=== PATIENT | male | born 1955 | race Caucasian/White ===

== ENCOUNTER → 2018-03-02 | Outpatient (CLI) | payer BC ==
[~2018-03-02] MED LIST: AMIT50TA3 PO; AMLO-110 PO; ASPI81TA28 PO; ATOR-24 PO; HYZ/10015 PO; INSU1.2I SC; LEVO50TA PO; METF-384 PO; OMEG10007 PO; OXYC-106 PO; PSYL55.43 PO
[2018-03-02 12:52] LABS: BLOOD UREA NITROGEN 14 mg/dl (7-18); CALCIUM 9.7 mg/dl (8.5-10.1); CARBON DIOXIDE 28 mmol/L (21-32); CREATININE 0.95 mg/dl (0.60-1.40); GLUCOSE 147 mg/dl (70-99); POTASSIUM 4.1 mmol/L (3.5-5.1); SODIUM 136 mmol/L (136-145)
== END | disposition home or self-care (01) ==
LOC: C.LAB1850 10:07
DX: R73.9 Hyperglycemia, unspecified (principal); E78.5 Hyperlipidemia, unspecified

== ENCOUNTER → 2018-07-06 | Outpatient (CLI) | payer BC ==
[~2018-07-06] MED LIST changes: -AMLO-110 PO; +AMLO5TAB3 PO; -OXYC-106 PO; +OXYC-594 PO
[2018-07-06 13:20] LABS: HEMOGLOBIN A1C 7.9 % (4.5-5.6)
[2018-07-06 13:27] LABS: ALT/SGPT 67 U/L (12-78); AST/SGOT 46 U/L (15-37); BLOOD UREA NITROGEN 19 mg/dl (7-18); CALCIUM 9.3 mg/dl (8.5-10.1); CARBON DIOXIDE 27 mmol/L (21-32); CREATININE 0.93 mg/dl (0.60-1.40); GLUCOSE 141 mg/dl (70-99); SODIUM 134 mmol/L (136-145)
== END | disposition home or self-care (01) ==
LOC: C.LAB1850 11:48
DX: I10 Essential (primary) hypertension (principal); E78.5 Hyperlipidemia, unspecified; E11.9 Type 2 diabetes mellitus without complications

== ENCOUNTER 2020-05-19 15:40 | Inpatient (IN) ==
[2020-05-19] MEDS ORDERED: LACTATED RINGER'S 1,000 ML IV ONE (16:02)
[2020-05-19] MEDS ORDERED: SODIUM CHLORIDE 0.9% 1000ML 1,000 ML IV ONE (16:02)
--- NOTE | 2020-05-19 16:37 | Emergency Department Note ---
Impression & Plan Fever, SIRS (systemic inflammatory response syndrome), CHRIS (acute kidney injury), Elevated lactic acid level, Acute confusion ED Provider Note Provider: Fortino Castañeda MD DATE OF SERVICE: 05/19/2020 CHIEF COMPLAINT: Fever, confusion, weakness HISTORY OF PRESENT ILLNESS: Patient is a 64-year-old gentleman history of chronic bronchitis, hypertension, diabetes presenting today via private vehicle with his reporting fever with some confusion and weakness over the past 3 days. Also reports fairly consistent headache. States this prior drove up to [place] camp about 100 miles away. The next morning this past Wednesday patient began to experience headaches and fevers and weakness. Yesterday Wednesday, the patient states he had a fever and just laid in bed and was very tired. They drove back today to be further evaluated. Patient's has some URI and sore throat symptoms herself. Patient states he has a headache but no neck pain. Patient denies visual change. States that he has some mild diffuse abdominal pain at some point but denies real pain at this time. Denies urinary symptoms. States he is been constipated for several days. States he has a chronic cough due to his chronic bronchitis but denies that this is acutely worse. No other travel or sick contacts reported besides his in the recent travel [place]. No trauma is reported. Patient's headache has been fairly constant. States he is taken some Tylenol but unsure when. Patient has some difficulty with remembering exact details over last several days and his has reported that he seems a bit more confused and off. Patient states he does have a small riley on his right upper arm but denies any recent tick bites or that he removed anything from this or how this occurred. REVIEW OF SYSTEMS: A total of 10 review of systems was obtained and negative except as stated above in the HPI. PAST MEDICAL HISTORY: As noted above MEDICATIONS: Reviewed his medication list which includes insulin, amitriptyline, amlodipine SOCIAL HISTORY: Lives at home with in the [place] area. Denies smoking at this time. PHYSICAL EXAM: GENERAL: alert and oriented to person in no acute distress on stretcher Head: normocephalic and atraumatic EYES: No injection, discharge or icterus. PERRL NECK: Trachea midline. Supple. No meningismus. Moving his head around looking around the room without difficulty. ENT: Mucous membranes pink and moist. Pharynx without erythema or exudate. LUNGS: Airway patent. No retractions. Breath sounds clear HEART: Tachycardic rate and rhythm. No chest wall tenderness ABDOMEN: Soft and non-tender, without guarding or rebound. SKIN: Acyanotic, warm, dry, without rashes EXTREMITIES: Without swelling, tenderness or deformity except for 1 small 3 cm area of punctate erythema and possible bite on the right upper arm. There is no surrounding bullae erythema, fluctuance, crepitus, or evidence of retained foreign body. NEUROLOGICAL: No focal deficits. No aphasia. No facial droop or slurred speech. Patient does have some difficulty recollecting fairly recent events over the last several days I would expect remembrances whether he took Tylenol today or not. Seems to minimize the symptoms on exam. Patient does have some slight twitching and tremor of his hands and legs. (Report that there is always some mild symptoms but this seems to be slightly exacerbated over the last several days) EKG: Sinus tachycardia 110 bpm, no PVC. QTC 476. There is no significant acute ST segment elevation noted. This is similar to prior EKG available from March [id number]. CONTINUOUS CARDIAC MONITORING: was ordered and showed a heart rate of 108 bpm in sinus tachycardia Patient's hypertension was referred to the hospitalist HOSPITAL COURSE: 1620 Patient was first seen and H&P performed. 180 discussed with patient's via phone. She agrees that he seemed a bit off and agrees with plan for further observation here in the hospital. 181 Patient reassessed and updated. Patient was agreeable for further observation in the hospital 183 discussed with the [facility] hospitalist team for admission. Patient's laboratory studies and imaging reviewed. Differential includes Viral syndrome, otitis, pharyngitis, pneumonia, influenza, meningitis, urinary tract infection, sepsis, bacteremia, as well as other pathologies. IMPRESSION/MEDICAL DECISION MAKING: Patient was made a code sepsis due to tachycardia fever, and some mild hypoxia upon arrival. Patient has chronic bronchitis likely why his oxygen levels are in the lower range. Given his recent travel and concern for infectious pathology rapid COVID test was completed and negative. CT of the chest was completed to exclude PE and this was negative. There is no evidence of pneumonia there. Labs were obtained without evidence of significant leukocytosis. Sodium is mildly depressed at 130 (mild hyponatremia), slight CHRIS 1.45 compared to recent value around 1 several weeks ago. Lactate mildly elevated 2.2. Glucose 232. Troponin not elevated. AST slightly elevated. Procalcitonin 0.65 is somewhat concerning. Urinalysis looks negative for signs of infection. Lyme screen was negative. CT of the head was completed without evidence of acute intercranial hemorrhage or abnormality. I doubt subarachnoid hemorrhage. CT of the chest and abdomen pelvis without acute pathology to explain his symptoms. Patient received 2 L of IV fluid resuscitation. I doubt this represents meningitis given how well the patient is moving his head and lack of neck tenderness at this time. There is no leukocytosis. Anaplasmosis testing was sent some concern for this. Do not see evidence of a cellulitis. He is mildly confused, febrile, tachycardic and with this feel that further observation and evaluation in the hospital is indicated this time. Discussed with him and his who are in agreement. Given empiric treatment with doxycycline and a dose of Levaquin at this time to cover broadly including tickborne disease while further differentiation is pursued. Discussed with the hospitalist team. DIAGNOSIS: Fever, CHRIS, SIRS criteria, tachycardia, confusion, elevated lactate DISPOSITION: Hospitalist will evaluate Patient was agreeable with this plan. Past Med/Surg History Social History Feels Safe at Home: Yes Smoking Status: Never smoker Allergies Allergies Allergy/AdvReac Type Severity Reaction Status Date / Time Penicillins Allergy Severe AMOXICILLIN-HIVES; Verified 05/19/20 16:42 throat swelling Home Meds Home Medications Medication Instructions Recorded Confirmed Unknown Insulin 30 unit SC BID 05/19/20 05/19/20 amitriptyline 50 mg PO BID 05/19/20 05/19/20 amlodipine [Norvasc] 10 mg PO DAILY 05/19/20 05/19/20 budesonide-formoterol [Symbicort] 2 puff INHALATION BID 05/19/20 05/19/20 dapagliflozin-metformin [Xigduo XR] 1 tab PO DAILY 05/19/20 05/19/20 glyburide 15 mg PO DAILY 05/19/20 05/19/20 hydrocodone-acetaminophen [[place]] 1 tab PO Q4 PRN 05/19/20 05/19/20 levothyroxine [Synthroid] 75 mcg PO DAILY 05/19/20 05/19/20 losartan [Cozaar] 100 mg PO DAILY 05/19/20 05/19/20 rosuvastatin 40 mg PO DAILY 05/19/20 05/19/20 spironolactone [Aldactone] 25 mg PO BID 05/19/20 05/19/20 Results & Data (ED) Vital Signs Vital Signs - 24 hr 05/19/20 15:49 05/19/20 16:17 05/19/20 16:35 Temperature 38.8 C H Temperature Source Oral Pulse Rate 116 H 106 H Pulse Rate from SpO2 Sensor 106 H Respiratory Rate 24 28 H Respiratory Effort / Characteristics Non-Labored Respiratory Depth Normal Blood Pressure 136/64 140/62 Blood Pressure Mean 88 77 Pulse Oximetry 89 L 93 93 Oxygen Delivery Method Room Air Room Air Sepsis Recent Fever Within 48 Hours No Sepsis Action Taken by Nursing No Action Required 05/19/20 16:45 05/19/20 17:45 05/19/20 17:51 Temperature 38.7 C H Temperature Source Oral Pulse Rate 106 H 107 H Pulse Rate from SpO2 Sensor 104 H Respiratory Rate 27 H 23 Respiratory Effort / Characteristics Respiratory Depth Blood Pressure 154/62 H 131/52 L Blood Pressure Mean 93 64 Pulse Oximetry 94 93 Oxygen Delivery Method Room Air Sepsis Recent Fever Within 48 Hours Sepsis Action Taken by Nursing Laboratory Data Result diagrams: 05/19/20 16:25 05/19/20 16:25 Lab Results 05/19/20 05/19/20 05/19/20 Range/Units 16:25 16:25 16:25 WBC 9.01 (4.8-10.8) K/uL RBC 5.18 (4.7-6.1) M/uL Hgb 15.4 (14.0-18.0) g/dL Hct 46.8 (42-52) % MCV 90.3 (80-100) fL MCH 29.7 (25-34) pg MCHC 32.9 (32-36) g/dL RDW Std Deviation 46.7 H (36.4-46.3) fL RDW Coeff of Papo 14.0 (11.5-14.5) % Plt Count 205 (130-400) K/uL MPV 10.2 (7.4-10.4) fL Immature Gran % (Auto) 0.2 % Neut % (Auto) 87.6 % Lymph % (Auto) 7.3 % O'Brien % (Auto) 4.8 % Eos % (Auto) 0.0 % Baso % (Auto) 0.1 % Immature Gran # (Auto) 0.02 (0.00-0.02) K/uL Neut # (Auto) 7.89 H (1.4-6.5) K/uL Lymph # (Auto) 0.66 L (1.2-3.4) K/uL O'Brien # (Auto) 0.43 (0.11-0.59) K/uL Eos # (Auto) 0.00 (0-0.5) K/uL Baso # (Auto) 0.01 (0-0.2) K/uL PT 11.4 (9.0-12.0) Seconds INR 1.1 (0.9-1.1) APTT 27.6 (21.0-31.0) Seconds PTT Ratio 1.0 Sodium 130 L (136-145) mmol/L Potassium 4.1 (3.5-5.1) mmol/L Chloride 98 (98-107) mmol/L Carbon Dioxide 24 (21-32) mmol/L Anion Gap 8.0 (3-11) BUN 24 H (7-18) mg/dl Creatinine 1.45 H (0.6-1.4) mg/dl Est Cr Clr Drug Dosing 57.3 ml/min Est GFR ( Amer) 58.6 Est GFR (Non-Af Amer) 50.5 BUN/Creatinine Ratio 16.4 (10-20) Glucose 232 H (70-99) mg/dl Lactate (0.4-2.0) mmol/L Calcium 8.7 (8.5-10.1) mg/dl Magnesium 2.1 (1.8-2.4) mg/dl Total Bilirubin 0.6 (0.2-1) mg/dl AST 53 H (15-37) U/L ALT 69 (12-78) U/L Alkaline Phosphatase 65 (45-117) U/L Troponin I < 0.015 (0-0.045) ng/ml Total Protein 7.8 (6.4-8.2) gm/dl Albumin 3.7 (3.4-5.0) gm/dl Globulin 4.1 H (2.5-4.0) gm/dl Albumin/Globulin Ratio 0.9 (0.9-2) Procalcitonin (0-0.5) ng/ml Urine Color Urine Appearance (Clear) Urine pH (4.5-7.5) Ur Specific [place] (1.000-1.030) Urine Protein (Negative) Urine Glucose (UA) (Negative) Urine Ketones (Negative) Urine Blood (Negative) Urine Nitrite (Negative) Urine Bilirubin (Negative) Urine Urobilinogen (Negative) Ur Leukocyte Esterase (Negative) Urine WBC (Auto) (0-5) /hpf Urine RBC (Auto) (0-4) /hpf U Hyaline Cast (Auto) (0-5) /lpf U Epithel Cells (Auto) (0-5) /lpf Urine Bacteria (Auto) (Negative) Lyme Disease IgG Ab (Negative) Lyme Disease IgM Ab (Negative) COVID-19 PCR (Negative) SARS-CoV-2 RNA (RT-PCR) 05/19/20 05/19/20 05/19/20 Range/Units 16:25 16:25 16:25 WBC (4.8-10.8) K/uL RBC (4.7-6.1) M/uL Hgb (14.0-18.0) g/dL Hct (42-52) % MCV (80-100) fL MCH (25-34) pg MCHC (32-36) g/dL RDW Std Deviation (36.4-46.3) fL RDW Coeff of Papo (11.5-14.5) % Plt Count (130-400) K/uL MPV (7.4-10.4) fL Immature Gran % (Auto) % Neut % (Auto) % Lymph % (Auto) % O'Brien % (Auto) % Eos % (Auto) % Baso % (Auto) % Immature Gran # (Auto) (0.00-0.02) K/uL Neut # (Auto) (1.4-6.5) K/uL Lymph # (Auto) (1.2-3.4) K/uL O'Brien # (Auto) (0.11-0.59) K/uL Eos # (Auto) (0-0.5) K/uL Baso # (Auto) (0-0.2) K/uL PT (9.0-12.0) Seconds INR (0.9-1.1) APTT (21.0-31.0) Seconds PTT Ratio Sodium (136-145) mmol/L Potassium (3.5-5.1) mmol/L Chloride (98-107) mmol/L Carbon Dioxide (21-32) mmol/L Anion Gap (3-11) BUN (7-18) mg/dl Creatinine (0.6-1.4) mg/dl Est Cr Clr Drug Dosing ml/min Est GFR ( Amer) Est GFR (Non-Af Amer) BUN/Creatinine Ratio (10-20) Glucose (70-99) mg/dl Lactate 2.2 H* (0.4-2.0) mmol/L Calcium (8.5-10.1) mg/dl Magnesium (1.8-2.4) mg/dl Total Bilirubin (0.2-1) mg/dl AST (15-37) U/L ALT (12-78) U/L Alkaline Phosphatase (45-117) U/L Troponin I (0-0.045) ng/ml Total Protein (6.4-8.2) gm/dl Albumin (3.4-5.0) gm/dl Globulin (2.5-4.0) gm/dl Albumin/Globulin Ratio (0.9-2) Procalcitonin 0.65 H (0-0.5) ng/ml Urine Color Urine Appearance (Clear) Urine pH (4.5-7.5) Ur Specific [place] (1.000-1.030) Urine Protein (Negative) Urine Glucose (UA) (Negative) Urine Ketones (Negative) Urine Blood (Negative) Urine Nitrite (Negative) Urine Bilirubin (Negative) Urine Urobilinogen (Negative) Ur Leukocyte Esterase (Negative) Urine WBC (Auto) (0-5) /hpf Urine RBC (Auto) (0-4) /hpf U Hyaline Cast (Auto) (0-5) /lpf U Epithel Cells (Auto) (0-5) /lpf Urine Bacteria (Auto) (Negative) Lyme Disease IgG Ab Negative (Negative) Lyme Disease IgM Ab Negative (Negative) COVID-19 PCR (Negative) SARS-CoV-2 RNA (RT-PCR) 05/19/20 05/19/20 05/19/20 Range/Units 16:29 16:29 17:15 WBC (4.8-10.8) K/uL RBC (4.7-6.1) M/uL Hgb (14.0-18.0) g/dL Hct (42-52) % MCV (80-100) fL MCH (25-34) pg MCHC (32-36) g/dL RDW Std Deviation (36.4-46.3) fL RDW Coeff of Papo (11.5-14.5) % Plt Count (130-400) K/uL MPV (7.4-10.4) fL Immature Gran % (Auto) % Neut % (Auto) % Lymph % (Auto) % O'Brien % (Auto) % Eos % (Auto) % Baso % (Auto) % Immature Gran # (Auto) (0.00-0.02) K/uL Neut # (Auto) (1.4-6.5) K/uL Lymph # (Auto) (1.2-3.4) K/uL O'Brien # (Auto) (0.11-0.59) K/uL Eos # (Auto) (0-0.5) K/uL Baso # (Auto) (0-0.2) K/uL PT (9.0-12.0) Seconds INR (0.9-1.1) APTT (21.0-31.0) Seconds PTT Ratio Sodium (136-145) mmol/L Potassium (3.5-5.1) mmol/L Chloride (98-107) mmol/L Carbon Dioxide (21-32) mmol/L Anion Gap (3-11) BUN (7-18) mg/dl Creatinine (0.6-1.4) mg/dl Est Cr Clr Drug Dosing ml/min Est GFR ( Amer) Est GFR (Non-Af Amer) BUN/Creatinine Ratio (10-20) Glucose (70-99) mg/dl Lactate (0.4-2.0) mmol/L Calcium (8.5-10.1) mg/dl Magnesium (1.8-2.4) mg/dl Total Bilirubin (0.2-1) mg/dl AST (15-37) U/L ALT (12-78) U/L Alkaline Phosphatase (45-117) U/L Troponin I (0-0.045) ng/ml Total Protein (6.4-8.2) gm/dl Albumin (3.4-5.0) gm/dl Globulin (2.5-4.0) gm/dl Albumin/Globulin Ratio (0.9-2) Procalcitonin (0-0.5) ng/ml Urine Color Yellow Urine Appearance Clear (Clear) Urine pH 6.0 (4.5-7.5) Ur Specific [place] 1.027 (1.000-1.030) Urine Protein 2+ H (Negative) Urine Glucose (UA) 3+ H (Negative) Urine Ketones Negative (Negative) Urine Blood Negative (Negative) Urine Nitrite Negative (Negative) Urine Bilirubin Negative (Negative) Urine Urobilinogen Negative (Negative) Ur Leukocyte Esterase Negative (Negative) Urine WBC (Auto) 0 (0-5) /hpf Urine RBC (Auto) 0-4 (0-4) /hpf U Hyaline Cast (Auto) 0 (0-5) /lpf U Epithel Cells (Auto) 5-10 H (0-5) /lpf Urine Bacteria (Auto) Negative (Negative) Lyme Disease IgG Ab (Negative) Lyme Disease IgM Ab (Negative) COVID-19 PCR NEGATIVE (Negative) SARS-CoV-2 RNA (RT-PCR) Cancelled Administered Medications Levofloxacin/Dextrose (Levaquin/D5w) 750 mg in 150 mls @ 100 mls/hr IV NOW STA Stop: 05/19/20 19:40 Last Admin: 05/19/20 18:20 Dose: 100 mls/hr Documented by: [id number] Ioversol (Optiray 320 125ml) 117 ml IV ONCE PRN PRN Reason: Interaction Checking Stop: 05/23/20 17:23 Last Admin: 05/19/20 17:25 Dose: 117 ml Documented by: [id number] Discontinued Medications Acetaminophen (Tylenol) 1,000 mg PO NOW STA Stop: 05/19/20 18:08 Last Admin: 05/19/20 18:20 Dose: 1,000 mg Documented by: [id number] Sodium Chloride (Nss 1000ml) 1,000 mls @ 999 mls/hr IV .Q1H1M ONE Stop: 05/19/20 17:02 Last Infusion: 05/19/20 17:34 Dose: 0 mls/hr Documented by: [id number] Admin: 05/19/20 16:33 Dose: 999 mls/hr Documented by: [id number] Lactated Ringer's (Lr) 1,000 mls @ 999 mls/hr IV .Q1H1M ONE Stop: 05/19/20 17:02 Last Infusion: 05/19/20 17:34 Dose: 0 mls/hr Documented by: [id number] Admin: 05/19/20 16:33 Dose: 999 mls/hr Documented by: [id number] Discharge Plan Visit Data Chief Complaint: Fever Stated Complaint: FEVER, FATIGUE, LOSS OF APPETITE ED Provider: Fortino Castañeda Discharge Problem: Fever, SIRS (systemic inflammatory response syndrome), CHRIS (acute kidney injury), Elevated lactic acid level, Acute confusion Patient Disposition: Being Evaluated by Hospitalist Condition: Fair Forms Stand Alone Forms: My [facility] [employer] Prescriptions Prescriptions: No Action hydrocodone-acetaminophen [[place]] 5-325 mg tablet 1 tab PO Q4 PRN (Reason: Pain) RF: 0 amlodipine [Norvasc] 10 mg tablet 10 mg PO DAILY RF: 0 losartan [Cozaar] 100 mg tablet 100 mg PO DAILY RF: 0 budesonide-formoterol [Symbicort] 160-4.5 mcg/actuation HFA aerosol inhaler 2 puff INHALATION BID RF: 0 glyburide 5 mg tablet 15 mg PO DAILY RF: 0 amitriptyline 50 mg tablet 50 mg PO BID RF: 0 spironolactone [Aldactone] 25 mg tablet 25 mg PO BID RF: 0 levothyroxine [Synthroid] 75 mcg tablet 75 mcg PO DAILY RF: 0 rosuvastatin 40 mg tablet 40 mg PO DAILY RF: 0 Xigduo XR 10-1,000 mg tablet, IR - ER, biphasic 24hr 1 tab PO DAILY RF: 0 Unknown Insulin 30 unit SC BID RF: 0 Referrals Referrals: Ricki Khan Jr, [Primary Care Provider] -
[2020-05-19 16:43] LABS: Basophils # (auto) 0.01 K/uL (0-0.2); Basophils % (auto) 0.1 %; Hematocrit (blood only) 46.8 % (42-52); Hemoglobin 15.4 g/dL (14.0-18.0); Immature Granulocytes # (auto) 0.02 K/uL (0.00-0.02); Immature Granulocytes % (auto) 0.2 %; Lymphocytes # (auto) 0.66 K/uL (1.2-3.4); Lymphocytes % (auto) 7.3 %; Mean Corpuscular Hemoglobin 29.7 pg (25-34); Mean Corpuscular Hgb Conc 32.9 g/dL (32-36); Mean Corpuscular Volume 90.3 fL (80-100); Mean Platelet Volume 10.2 fL (7.4-10.4); Monocytes # (auto) 0.43 K/uL (0.11-0.59); Monocytes % (auto) 4.8 %; Neutrophils # (auto) 7.89 K/uL (1.4-6.5); Neutrophils % (auto) 87.6 %; Platelet Count 205 K/uL (130-400); RDW Standard Deviation 46.7 fL (36.4-46.3); Red Blood Count 5.18 M/uL (4.7-6.1); White Blood Count 9.01 K/uL (4.8-10.8)
--- NOTE | 2020-05-19 16:48 | XRay Report ---
SINGLE VIEW CHEST CLINICAL HISTORY: Sepsis. FINDINGS: An AP, portable, upright chest radiograph is compared to study dated 10/27/2015. The examin ation is degraded by portable technique and apical lordotic positioning. The cardiomediastinal silhou ette is unremarkable noting atherosclerotic calcification of the thoracic aorta. There is mild bibasi lar atelectasis. The lungs and pleural spaces are otherwise clear. No pneumothorax is seen. The bony thorax is grossly intact. IMPRESSION: No active disease in the chest. ACT 112: Negative or not required by law. Electronically signed by: Killian Larry M.D. 05/19/2020 4:47 PM
[2020-05-19 16:56] LABS: INR 1.1 (0.9-1.1); Partial Thromboplastin Time 27.6 Seconds (21.0-31.0); Prothrombin Time 11.4 Seconds (9.0-12.0)
[2020-05-19 17:01] LABS: Alanine Aminotransferase 69 U/L (12-78); Albumin Level 3.7 gm/dl (3.4-5.0); Aspartate Aminotransferase 53 U/L (15-37); BUN Creatinine Ratio 16.4 (10-20); Blood Urea Nitrogen 24 mg/dl (7-18); Calcium 8.7 mg/dl (8.5-10.1); Carbon Dioxide 24 mmol/L (21-32); Chloride 98 mmol/L (98-107); Creatinine Clr Calc Pharmacy 57.3 ml/min; Est GFR (African American) 58.6; Est GFR (Non-African American) 50.5; Glucose 232 mg/dl (70-99); Magnesium 2.1 mg/dl (1.8-2.4); Potassium 4.1 mmol/L (3.5-5.1); Sodium 130 mmol/L (136-145)
[2020-05-19 17:06] LABS: Albumin Globulin Ratio 0.9 (0.9-2); Alkaline Phosphatase 65 U/L (45-117); Bilirubin,Total 0.6 mg/dl (0.2-1); Globulin 4.1 gm/dl (2.5-4.0); Total Protein 7.8 gm/dl (6.4-8.2); Troponin I < 0.015 ng/ml (0-0.045)
[2020-05-19] MEDS ORDERED: OPTIRAY 320 125ml IV PRN (17:24)
[2020-05-19 17:31] LABS: Appearance Urine Clear (Clear); Bacteria Urine Automated Negative (Negative); Bilirubin Urine Negative (Negative); Blood Urine Negative (Negative); Cast Urine Automated 0 /lpf (0-5); Color Urine Yellow; Glucose Urine UA 3+ (Negative); Ketones Urine Negative (Negative); Leukocyte Esterase Urine Negative (Negative); Nitrite Urine Negative (Negative); Protein Urine 2+ (Negative); RBC Urine Automated 0-4 /hpf (0-4); Specific Gravity Urine 1.027 (1.000-1.030); Urobilinogen Urine Negative (Negative); WBC Urine Automated 0 /hpf (0-5)
--- NOTE | 2020-05-19 17:41 | CT Scan Report ---
CT SCAN OF THE BRAIN WITHOUT IV CONTRAST CLINICAL HISTORY: Headache. COMPARISON STUDY: No priors. TECHNIQUE: Unenhanced axial CT scan of the brain is performed from the vertex to the skull base. A do se lowering technique was utilized adhering to the principles of ALARA. The Examination is degraded b y motion artifact. The patient was scanned twice in an effort to improve image quality. CT DOSE: 3949.76 mGy.cm FINDINGS: Brain parenchyma: There are age-related involutional changes noting minimal subcortical and perivent ricular microangiopathic change. There is no hemorrhage, mass effect, or evidence of acute territoria l ischemia by CT criteria. Meneses-white matter differentiation is preserved. No extra-axial fluid colle ction is seen. Ventricles, sulci, cisterns: Prominent secondary to involutional change. Intracranial vasculature: There is atherosclerotic calcification of the cavernous carotid arteries. Calvarium: Unremarkable. Sinuses and mastoids: Chronic posttraumatic deformity is noted in the left maxillary antrum. The visu alized paranasal sinuses are clear. The mastoid air cells are well pneumatized. Orbits: The bony orbits are grossly intact. IMPRESSION: There is no hemorrhage, mass effect, or evidence of acute territorial ischemia by CT crit michelle noting a motion degraded examination. ACT 112: Negative or not required by law. Electronically signed by: Killian Larry M.D. 05/19/2020 5:40 PM
--- NOTE | 2020-05-19 17:55 | CT Scan Report ---
CT ANGIOGRAM OF THE CHEST; CT SCAN OF THE ABDOMEN AND PELVIS WITH IV CONTRAST CLINICAL HISTORY: Cough and fever. COMPARISON STUDY: Chest x-ray dated 05/19/2020. Lumbar spine radiographs dated 02/18/2015. TECHNIQUE: Following the IV administration of 117 of Optiray 320, CT angiogram of the chest is perfor med from the upper abdomen to the thoracic inlet utilizing the pulmonary embolus protocol. Images are reviewed in the axial, sagittal, coronal planes. 3-D MIPS images are created and assessed. Subsequen tly, CT scan of the abdomen and pelvis was performed from the lung bases to the proximal femora. Imag es are reviewed in the axial, sagittal, and coronal planes. IV contrast was administered without comp lication. A dose lowering technique was utilized adhering to the principles of ALARA. The examination is degraded by motion artifact, as was by streak artifact from the arms which could not be elevated above the chest or abdomen. FINDINGS: CHEST: Thyroid: Imaged portions of the thyroid gland are normal in size and attenuation. Thoracic aorta: There is atherosclerotic calcification of the thoracic aorta, which is normal in lise jil and demonstrates standard 3-vessel arch anatomy. No dissection is seen. Pulmonary vasculature: The pulmonary trunk is normal in caliber. There are no filling defects identif ied in the main or lobar pulmonary arteries to indicate pulmonary embolus. Evaluation of the segmenta l and subsegmental branches is significantly compromised by streak and motion artifact. Heart: The heart is top normal in size and without pericardial effusion. There are coronary artery ca lcifications. Lungs and pleural spaces: Evaluation of the lung parenchyma is degraded by motion artifact. No airspa ce consolidation or pleural effusion is identified. The trachea and central airways appear Clear. Mediastinum: There is no mediastinal lymphadenopathy. Obdulia: Clear. Axillae: There is no axillary lymphadenopathy. Bony thorax: No lytic or blastic lesions are identified. There are healed left-sided rib fractures. Soft tissues: Gynecomastia is noted. ABDOMEN AND PELVIS: Liver: The contrast-enhanced liver is enlarged, measuring 22.6 cm in length. The liver demonstrates d iffusely diminished attenuation consistent with hepatic steatosis. Fatty sparing is noted adjacent to gallbladder fossa. There is no intrahepatic or ductal dilatation. The hepatic veins and portal veins are patent. Gallbladder: Unremarkable. Spleen: Normal in size and attenuation. Pancreas: Unremarkable. 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 The left adrenal gland is nor mal in appearance. Kidneys: The contrast enhanced kidneys are normal in size and without hydronephrosis. The kidneys enh ance symmetrically. Abdominal vasculature: The abdominal aorta is normal in course and caliber noting advanced atheroscle rotic calcification. Stomach and bowel: There is a moderate hiatal hernia. There are scattered colonic diverticula without CT evidence of acute diverticulitis. No bowel obstruction is seen. Mild fecal retention is noted thr oughout the colon. The appendix is well-visualized and normal. Peritoneum: There is no intraperitoneal free air or abdominal ascites. Findings suggest previous umbi lical hernia repair. Lymphadenopathy: A 3.3 x 1.6 cm portacaval lymph node is seen on image #159. This is nonspecific and likely related to chronic liver disease. No additional enlarged lymph nodes are seen in the abdomen o r pelvis. Pelvic viscera: The prostate gland is mildly enlarged and heterogeneous. The bladder and seminal vesi cles are normal as imaged. Skeletal structures: The skeletal structures appear osteopenic. Mild to moderate lumbosacral spondylo sis is noted. There is evidence of previous left hemilaminectomy in the lower lumbar spine. Sclerotic change is noted in the sacroiliac joints. No lytic or blastic lesions are seen. IMPRESSION: 1. Significantly streak and motion compromised examination. 2. There is no evidence of central pulmonary embolus in the main or lobar pulmonary arteries. Evaluat ion of the segmental branches is severely compromised by streak and motion. 3. There is no airspace consolidation or pleural effusion. 4. No acute infectious or inflammatory findings are identified in the abdomen or pelvis. 5. Hepatomegaly and hepatic steatosis. 6. Additional findings as above. ACT 112: Negative or not required by law. Electronically signed by: Killian Larry M.D. 05/19/2020 5:54 PM
[2020-05-19] MEDS ORDERED: ACETAMINOPHEN 500 MG TAB PO STA (18:07)
[2020-05-19] MEDS ORDERED: LEVOFLOXACIN/D5W 750 MG/150 ML BAG IV STA (18:11)
[2020-05-19 18:20] LABS: Lyme Ab IgG w/WB Rflx Negative (Negative); Lyme Ab IgM w/WB Rflx Negative (Negative)
[2020-05-19] MEDS ORDERED: DOXYCYCLINE HYCLATE 100 MG CAP PO STA (18:26)
--- NOTE | 2020-05-19 18:40 | History & Physical Report ---
Date of Service May 19, 2020 Assessment & Plan (1) Fever: Patient will be admitted. Received Doxy and levofloxacin in ED. will monitor his temp. Patient will receive iVF. will monitor lactic acid. obtain lyme and anasplasmosis smear. covid negative, will consider BIOFIRE if negative. (2) Elevated lactic acid level: received IVF bolus in ED. WILL MONITOR. (3) SIRS (systemic inflammatory response syndrome): having signs of SIRS. no source of infection at this time. (4) Diabetes: placed on glycemic control (5) Hypertension: bP elevated will recume home BP meds. DVT pro: heparin History of Present Illness , Chief Complaint: fever Primary Care Provider: Ricki Khan Jr, DO 64 yo male who is a poor historian as he does not recall his medications and medical problems. However he reports he recently went camping to past week and since Wednesday began having fevers. He deneis any other symptoms such as myalgias, nausea, vomiting, diarrhea, chest pain, dizziness, NO DYSURIA. His temp though has been high ranging from 100 to 102F. Patient came to the ER as his was concerned about his temp. Allergies Allergy/AdvReac Type Severity Reaction Status Date / Time Penicillins Allergy Severe AMOXICILLIN-HIVES; Verified 05/19/20 16:42 throat swelling Home Medications Home Medications Medication Instructions Recorded Confirmed Type Unknown Insulin 30 unit SC BID 05/19/20 05/19/20 History amitriptyline 50 mg PO BID 05/19/20 05/19/20 History amlodipine [Norvasc] 10 mg PO DAILY 05/19/20 05/19/20 History budesonide-formoterol [Symbicort] 2 puff INHALATION BID 05/19/20 05/19/20 History dapagliflozin-metformin [Xigduo XR] 1 tab PO DAILY 05/19/20 05/19/20 History glyburide 15 mg PO DAILY 05/19/20 05/19/20 History hydrocodone-acetaminophen [[place]] 1 tab PO Q4 PRN 05/19/20 05/19/20 History levothyroxine [Synthroid] 75 mcg PO DAILY 05/19/20 05/19/20 History losartan [Cozaar] 100 mg PO DAILY 05/19/20 05/19/20 History rosuvastatin 40 mg PO DAILY 05/19/20 05/19/20 History spironolactone [Aldactone] 25 mg PO BID 05/19/20 05/19/20 History Past Med/Surg History Family History (Updated 05/20/20 @ 07:07 by Tomás Knott) Father Hypertension Social History Preferred Language: Khmer Communication Ability: Effective Budget Clerk Required: No Beliefs That Will Affect Care: None Current Living Situation: Spouse Other Information That Helps Us Care for You: No Feels Safe at Home: Yes Safety Concerns: Feels Safe At This Time Smoking Status: Former smoker Do You Dip or Chew Tobacco: No ; Second Hand Exposure: No ; Tobacco Cessation Education Requested by Patient: No Hx Alcohol Use: Yes Alcohol type: beer Hx Substance Use: No Review of Systems Review of Systems: All systems reviewed & are unremarkable except as noted in HPI & below Constitutional: + fever Ear, Nose, Mouth, Throat: no ear pain Respiratory: no cough Cardiovascular: Additional Comments: no dypsnea on exertion Gastrointestinal: no N/V Genitourinary: + as per Subjective / HPI Musculoskeletal: NO WEAKNESS Neurologic: no syncope, falls Psychiatric: no confusion Endocrine: no cold intolerance Hematologic / Lymphatic: no easy bruising Allergy / Immunological: small erythematous lesion on his right arm Physical Exam Constitutional: WD/WN, vitals as above well developed Eyes: PERRL, conjunctivae normal, anicteric sclerae ENMT: external ear and nose normal, oropharynx normal Neck: trachea midline, no thyromegaly Respiratory: normal respiratory effort, lungs clear to auscultation Cardiovascular: Rate/Rhythm: + tachycardic Gastrointestinal (Abdomen): normal bowel sounds, soft, nontender, no hepatosplenomegaly Skin: no rashes, warm and dry (except for bug bite on his right arm) Results & Data Results & Data ([facility]) Vital Signs (Past 12 Hours) Vital Signs Temp Pulse Resp BP Pulse Ox 05/19/20 17:51 38.7 C H 05/19/20 17:45 107 H 23 131/52 L 93 05/19/20 16:45 106 H 27 H 154/62 H 94 05/19/20 16:35 106 H 28 H 140/62 93 05/19/20 16:17 93 06/21/20 15:49 38.8 C H 116 H 24 136/64 89 L PG Care Time/CCT Total # of Minutes Spent Total Time Spent with Patient: Total time spent is greater than 50% in coordination of care (as documented) at patient's floor/unit and/or counseling patient: Coding Level of Care Code 44253 Initial Inpt Care Lvl 3 Diagnoses Fever R50.9 Fever type: unspecified Elevated lactic acid level R79.89 SIRS (systemic inflammatory response syndrome) R65.10 Diabetes E11.9 Hypertension I10 (1) Fever Fever type: unspecified Qualified Code(s): R50.9 - Fever, unspecified
[2020-05-19] MEDS ORDERED: PHARMACY GLYCEMIC MGMT CONSULT PRN (20:18)
[2020-05-19] MEDS ORDERED: GLUCAGON FOR INJ 1 MG VIAL SQ PRN (20:30)
[2020-05-19] MEDS ORDERED: CARBOHYDRATES FOR HYPOGLYCEMIA PO PRN (20:30)
[2020-05-19] MEDS ORDERED: GLUCOSE 40% GEL 15 GM TUBE PO PRN (20:30)
[2020-05-19] MEDS ORDERED: DEXTROSE 50% 50 ML SYRINGE IV PRN (20:30)
[2020-05-19] MEDS ORDERED: GLUCOSE 10 TABS/TUBE PO PRN (20:30)
[2020-05-19] MEDS ORDERED: SPIRONOLACTONE 25 MG TAB PO SCH (21:00)
[2020-05-19] MEDS ORDERED: ROSUVASTATIN CALCIUM 20 MG TAB PO SCH (21:00)
[2020-05-19] MEDS: INSULIN ASPART 100 UNITS/ML 3 ML PEN SC SCH (21:03)
[2020-05-19] MEDS: LACTATED RINGER'S 1,000 ML IV SCH (21:03)
[2020-05-19] MEDS: HEPARIN SOD 5,000 UNIT/0.5 ML VIAL SQ SCH (21:04)
[2020-05-19] MEDS: AMITRIPTYLINE HCL 50 MG TAB PO SCH (21:04)
[2020-05-19] MEDS ORDERED: INSULIN GLARGINE SOLOSTAR 100 UNITS/ML 3 ML PEN SC SCH (21:30)
[2020-05-20] MEDS ORDERED: CALCIUM CARBONATE 500 MG CHEWABLE TAB PO PRN (00:30)
[2020-05-20] MEDS ORDERED: ACETAMINOPHEN 500 MG TAB ONE (01:23)
[2020-05-20] MEDS: ACETAMINOPHEN 500 MG TAB PO PRN ×2 (01:24→09:44)
--- NOTE | 2020-05-20 01:25 | Communication Note ---
Date of Service: May 20, 2020 Noted that pt was still febrile and tachycardic. Ordered IV doxycycline 100mg BID; considered rocephin for BBB penetration given pt's confusion but he has an allergy to penicillin that sounds like anaphylaxis. Held home spironolactone and losartan given kidney function. Ordered prn tylenol 1000mg to help with fever/pain. Resident Activity Tracking Resident Involvement: Writing Tutor Coverage Note Care Provided: Adult Hospital Medicine
[2020-05-20] MEDS ORDERED: INSULIN ASPART 100 UNITS/ML 3 ML PEN SC SCH (02:00)
[2020-05-20] MEDS ORDERED: Nursing to Pharmacy Communication SCH (02:15)
[2020-05-20] MEDS: LACTATED RINGER'S 1,000 ML IV SCH (05:31)
[2020-05-20] MEDS: HEPARIN SOD 5,000 UNIT/0.5 ML VIAL SQ SCH (05:32)
[2020-05-20] MEDS ORDERED: DOXYCYCLINE HYCLATE 100 MG in DEXTROSE 5% 100 ML IV SCH (06:00)
[2020-05-20] MEDS ORDERED: LEVOTHYROXINE SODIUM 75 MCG TABLET PO SCH (06:30)
[2020-05-20 07:04] LABS: Estimated Average Glucose 214 mg/dl; Hemoglobin A1C 9.1 % (4.5-5.6)
[2020-05-20 08:34] LABS: Adenovirus PCR Not Detected (NotDetected); Bordetella parapertussis PCR Not Detected (NotDetected); Bordetella pertussis PCR Not Detected (NotDetected); Chlamydia pneumoniae PCR Not Detected (NotDetected); Coronavirus 229E PCR Not Detected (NotDetected); Coronavirus HKU1 PCR Not Detected (NotDetected); Coronavirus NL63 PCR Not Detected (NotDetected); Coronavirus OC43PCR Not Detected (NotDetected); Human Metapneumovirus PCR Not Detected (NotDetected); Influenza A PCR Not Detected (NotDetected); Influenza B PCR Not Detected (NotDetected); Mycoplasma pneumoniae PCR Not Detected (NotDetected); Parainfluenza Virus 1 PCR Not Detected (NotDetected); Parainfluenza Virus 2 PCR Not Detected (NotDetected); Parainfluenza Virus 3 PCR Not Detected (NotDetected); Parainfluenza Virus 4 PCR Not Detected (NotDetected); Respiratory Syncytial VirusPCR Not Detected (NotDetected); Rhinovirus/Enterovirus PCR Not Detected (NotDetected)
[2020-05-20] MEDS: INSULIN ASPART 100 UNITS/ML 3 ML PEN SC SCH ×2 (08:46→12:54)
[2020-05-20] MEDS: AMITRIPTYLINE HCL 50 MG TAB PO SCH (08:48)
[2020-05-20] MEDS ORDERED: INSULIN GLARGINE SOLOSTAR 100 UNITS/ML 3 ML PEN SC ONE (09:00)
[2020-05-20] MEDS ORDERED: glyBURIDE 5 MG TAB PO SCH (09:00)
[2020-05-20] MEDS ORDERED: DAPAGLIFLOZIN METFORMIN PO SCH (09:00)
[2020-05-20] MEDS ORDERED: AMLODIPINE BESYLATE 5 MG TAB PO SCH (09:00)
[2020-05-20] MEDS ORDERED: LOSARTAN POTASSIUM 50 MG TAB PO SCH (09:00)
[2020-05-20] MEDS ORDERED: FLUTICASONE/VILANTEROL 200/25MCG 14 PUFFS/INHALER INH SCH (09:00)
[2020-05-20 09:43] LABS: Basophils # (auto) 0.01 K/uL (0-0.2); Basophils % (auto) 0.1 %; Hematocrit (blood only) 46.1 % (42-52); Hemoglobin 15.3 g/dL (14.0-18.0); Immature Granulocytes # (auto) 0.02 K/uL (0.00-0.02); Immature Granulocytes % (auto) 0.3 %; Lymphocytes # (auto) 0.68 K/uL (1.2-3.4); Lymphocytes % (auto) 9.6 %; Mean Corpuscular Hemoglobin 30.4 pg (25-34); Mean Corpuscular Volume 91.7 fL (80-100); Mean Platelet Volume 10.1 fL (7.4-10.4); Monocytes # (auto) 0.36 K/uL (0.11-0.59); Monocytes % (auto) 5.1 %; Neutrophils % (auto) 84.9 %; Platelet Count 168 K/uL (130-400); RDW Coefficient of Variation 14.4 % (11.5-14.5); RDW Standard Deviation 48.6 fL (36.4-46.3); Red Blood Count 5.03 M/uL (4.7-6.1); White Blood Count 7.07 K/uL (4.8-10.8)
--- NOTE | 2020-05-20 09:56 | Pharmacy Report ---
Glycemic Control Consultation - Date of Service May 20, 2020 - Scope Scope: Glycemic Pharmacist consulted for glycemic control and to write orders per [facility] inpatient glycemic control protocol. - Objective Weight: 103.1 kg Accuchecks BSG (last 24hrs): Laboratory Data (last 24hrs): 05/19/20 16:25 Potassium 4.1 Carbon Dioxide 24 Anion Gap 8.0 Creatinine 1.45 H Est Cr Clr Drug Dosing 57.3 HbA1c: Hemoglobin A1c 9.1 % (4.5-5.6) H 05/19/20 16:25 - Recent Pertinent Medications Outpatient Anti-diabetic Regimen: * Soliqua 30 units SQ BID, Glyburide 10 mg before breakfast and 5 mg before dinner, Xigduo XR 1000 mg-10 mg daily * A1c = 9.1% on 05/19/2020 Risk Factors for Insulin Resistance: * Infection: Doxycycline * IVF: LR at 125 mL/hr * Diet: T2DM - Assessment & Plan Assessment & Plan: ASSESSMENT: * 64 yo M admitted on 05/19/2020 secondary to fever, confusion, and weakness * PMHx significant for chronic bronchitis, hypertension, T2DM * Outpatient A1c shows poor control * Admission BSG was 232 mg/dL and pharmacy was consulted for glycemic management * BSG last evening as 143 mg/dL. Patient was given 10 units of Lantus. No bolus insulin was given last night. * Overnight check was 149 mg/dL, at goal. * Fasting BSG this AM was 132 mg/dL, at goal. Given BID Soliqua (Lantus-GLP1 combo) at home, will continue with Lantus BID dosing inpatient but at reduced dose. No changes will be made to Novolog parameters at this time. PLAN FOR INPATIENT GLYCEMIC CONTROL: * Pt is maintained on oral antidiabetic agents as an outpatient * Oral agents are not recommended for inpatient use d/t drug interactions, changing PO intake, and difficulty titrating for acute hyper/hypoglycemia. ADA recommends re-initiating outpatient oral agents 1-2 days prior to discharge if/when appropriate if they were held on admission. * Will hold oral agents for admission and utilize SQ basal bolus insulin regimen which is the recommended regimen for inpatient glycemic control. * ADA & AACE recommend a goal blood sugar range 140-180 mg/dl for the majority of critically ill & non-critically ill patients. However, more stringent targets may be selected in individual cases. Will utilize more stringent goal of 110-140mg/dl based on patient age & comorbidities. * Basal insulin * Lantus 10 units SQ BID * Bolus insulin * NovoLog per scale ACHS or Q6hrs while NPO * Goal Range: Low 110 mg/dL - High 140 mg/dL * Correction Factor: 25 mg/dL/unit * Nutritional / Prandial insulin per carb ratio of 1 unit per 10 grams CHO consumed * Please note that the plan above was derived based on current level of insulin resistance and hospital stress. These recommendations are appropriate for inpatient admission only. Plan of care upon discharge will need to be reassessed to avoid potential outpatient hypo/hyperglycemia. Thank you.
[2020-05-20 10:02] LABS: Albumin Level 3.3 gm/dl (3.4-5.0); BUN Creatinine Ratio 16.5 (10-20); Calcium 8.6 mg/dl (8.5-10.1); Creatinine Clr Calc Pharmacy 83.3 ml/min; Est GFR (African American) 92.9; Est GFR (Non-African American) 80.2; Potassium 4.3 mmol/L (3.5-5.1)
[2020-05-20 10:15] LABS: Mean Corpuscular Hgb Conc 33.2 g/dL (32-36)
[2020-05-20 10:35] LABS: Albumin Globulin Ratio 0.8 (0.9-2); Bilirubin,Total 0.5 mg/dl (0.2-1); Globulin 4.1 gm/dl (2.5-4.0); Phosphorus 2.8 mg/dl (2.5-4.9); Total Protein 7.4 gm/dl (6.4-8.2)
--- NOTE | 2020-05-20 11:09 | Electrocardiogram Report ---
Test Reason : Blood Pressure : / mmHG Vent. Rate : 110 BPM Atrial Rate : 110 BPM P-R Int : 166 ms QRS Dur : 086 ms QT Int : 352 ms P-R-T Axes : 057 008 054 degrees QTc Int : 476 ms Sinus tachycardia Otherwise normal ECG When compared with ECG of 01-MAR-2015 09:53, No significant change was found Confirmed by Jcarlos Ewing ([id number]) on 05/20/2020 11:09:18 AM Referred By: REFERRED SELF Confirmed By:Jcarlos Ewing
--- NOTE | 2020-05-20 12:13 | Discharge Summary ---
Date of Service May 20, 2020 Admission HPI Per Admitting Provider 64 yo male who is a poor historian as he does not recall his medications and medical problems. However he reports he recently went camping to past week and since Wednesday began having fevers. He deneis any other symptoms such as myalgias, nausea, vomiting, diarrhea, chest pain, dizziness, NO DYSURIA. His temp though has been high ranging from 100 to 102F. Patient came to the ER as his was concerned about his temp. Principal Diagnosis Fever Discharge Exam Constitutional WD/WN, vitals as above Eyes PERRL, conjunctivae normal, anicteric sclerae Neck normal visual inspection Respiratory normal respiratory effort, lungs clear to auscultation Cardiovascular Rate/Rhythm: regular rate and regular rhythm Heart Sounds: normal S1 and normal S2; no gallop, no murmur and no cardiac rub Gastrointestinal (Abdomen) normal bowel sounds, soft, nontender, no hepatosplenomegaly Musculoskeletal no cyanosis or clubbing, extremities motor strength 5/5 Skin no rashes, warm and dry Neurologic deep tendon reflexes 2+ bilaterally and moves all extremities; no focal motor deficits Psychiatric A+Ox3, euthymic affect Lymphatic no cervical or axillary lymphadenopathy Discharge Data Allergies Allergy/AdvReac Type Severity Reaction Status Date / Time Penicillins Allergy Severe AMOXICILLIN-HIVES; Verified 05/19/20 16:42 throat swelling Consultations 05/19/20 18:26 ED Decision to Admit Stat Ordered Studies 05/19/20 16:14 CT abd pelvis IV con only Stat CT angio chest PE protocol Stat CT head/brain wo con Stat Hospital Course (1) Fever: - with resolution of fevers and disorientation at this point, with memory of the events leading up to admission - COVID-19 negative - Biofire panel for viral illness negative - Peripheral smear negative for neutrophilic inclusions - Anaplasma PCR pending - given the prevalence of tick-borne illnesses in the area, concern that this results represents a too early test for delineation of tick-borne illnesses; will continue Doxycycline for 10 days Total Time Total Time Spent Total Time Spent (In Minutes): <30 Discharge Plan Discharge Items Patient Disposition: Home - Self-Care Reason For Visit: FEVER OF UNKNOWN ORIGIN Discharge Diagnosis: Tick-born illness Condition on Discharge: Fair Activity: Per Instructions section Non-emergency contact: Primary Care Provider Call non-emergency contact if: you have any medication questions, your symptoms worsen and your temperature is above 101 Follow-up/Referrals: Ricki Khan Jr, DO [Primary Care Provider] - 05/23/20 2:30 pm (This is a tele-health visit. Dr Khan will call you around the time of your appointment. If you need to change this appointment, please call [phone]) Diet: Regular Addtl Attending Provider Instructions: You were seen and admitted following a day of fever, and disorientation following going up to your camp. During this admission, you were tested for a variety of illnesses that could potentially cause these kinds of symptoms and at this point they have all come back negative. While this does not directly explain the source of your illness, we do know that due to the high prevalence of ticks and tick-borne illness in this area of the country and specifically in this area of the state that there is high likelihood for the transmission of these illness to you without knowledge of a tick bite. For this, you are being started on doxycycline that will be continued for 10 days. Pending Studies at Discharge: No Stand-Alone Forms: My [facility], Smoking Cessation Medications and DC Order Prescriptions: New doxycycline hyclate 100 mg capsule 100 mg PO Q12H 10 Days Qty: 20 RF: 0 Continued hydrocodone-acetaminophen [[place]] 5-325 mg tablet 1 tab PO Q4 PRN (Reason: Pain) RF: 0 amlodipine [Norvasc] 10 mg tablet 10 mg PO DAILY RF: 0 losartan [Cozaar] 100 mg tablet 100 mg PO DAILY RF: 0 budesonide-formoterol [Symbicort] 160-4.5 mcg/actuation HFA aerosol inhaler 2 puff INHALATION BID RF: 0 glyburide 5 mg tablet 15 mg PO DAILY RF: 0 amitriptyline 50 mg tablet 50 mg PO BID RF: 0 spironolactone [Aldactone] 25 mg tablet 25 mg PO BID RF: 0 levothyroxine [Synthroid] 75 mcg tablet 75 mcg PO DAILY RF: 0 rosuvastatin 40 mg tablet 40 mg PO DAILY RF: 0 Xigduo XR 10-1,000 mg tablet, IR - ER, biphasic 24hr 1 tab PO DAILY RF: 0 Unknown Insulin 30 unit SC BID RF: 0 Discharge Orders: Discharge Order (Routine); Ordered 05/20/20 Ordered By: Brendan Frazier/Other Patient Handouts: Long-Term Complications of Diabetes, Healthy Meals for Diabetes, Diabetes: The Benefits of Exercise, Managing Diabetes: The A1C Test Admission Data Admit Date/Time: 05/19/20 18:50 Attending Provider: Maurizio Sheppard Admit Provider: Tomás Knott Primary Care Provider: Ricki Khan Jr Other Providers: Tomás Knott Other Interventions: Discharge Summary Assessment (RN) Last Done: 05/20/20 12:40 DC Date/Time DO NOT enter until pt leaves facility: 05/20/20 13:22 Supervising Physician Co-Signing Physician Notes I personally examined the patient and verified all armas points of history and exam, discussed case, and agree with decision making with Dr Zhou. feeling better feeling up to going home. discussed working dx and treatment plan, he expressed understanding. vitals noted nad heent nc at mmm breathing unlabored no accessory muscles good effort skin no rashes no pallor or icterus fever - high probability of tick borne illness - early enough in course for lyme and anaplasmosis being false negative. risks/benefits and his current improvement all favor covering for tick borne w doxy - presumptively 10 days, if not improving rapidly enough can extend course if needed. stable for home, otherwise as above Resident Activity Tracking Resident Involvement: Resident Care Provided Care Provided: Adult Hospital Medicine
--- NOTE | 2020-05-20 17:41 | Billing Data ---
Date of Service May 20, 2020 Coding Level of Care Code D/C Day Management <30 mins
[2020-05-20] MEDS ORDERED: INSULIN GLARGINE SOLOSTAR 100 UNITS/ML 3 ML PEN SC SCH (21:00)
== END 2020-05-20 13:22 | disposition home or self-care (01) | DRG 864 ==
LOC: ED 15:40 → SUATTDRO 18:50 → 2W 18:50